=== PATIENT | female | born 1985 | race Caucasian/White ===

== ENCOUNTER 2016-05-15 09:15 | Inpatient (IN) | payer MEDICAID ==
[2016-05-15] MEDS ORDERED: LR 1,000 ML IV PRN ×2 (10:53→12:50)
[2016-05-15] MEDS ORDERED: AMPICILLIN SODIUM 2 GM in NS 100 ML IV ONE ×2 (11:00→12:50)
[2016-05-15] MEDS ORDERED: TERBUTALINE SULFATE 1 MG/ML VIAL IV PRN (12:50)
[2016-05-15] MEDS ORDERED: OXYTOCIN/RINGERS LACTATE 1,000 ML IV PRN (12:50)
[2016-05-15] MEDS ORDERED: EPSOM SALT 454 GM TP PRN (12:50)
[2016-05-15] MEDS ORDERED: OLIVE OIL 118 ML BTL MISC PRN (12:50)
[2016-05-15] MEDS ORDERED: LIDOCAINE 1% 30 ML SDV SC PRN (12:50)
[2016-05-15 13:05] LABS: % IMMATURE GRANULYOCYTES 0.6 % (0.0-1.1); ABSOLUTE IMMATURE GRANULOCYTES 0.09 10^3/uL (0.00-0.10); ADD DIFF? NO; ADD MORPH? NO; ADD SCAN? NO; ATYPICAL LYMPHOCYTE FLAG 10 (0-99); FRAGMENT RBC FLAG 0 (0-99); HEMATOCRIT 37.6 % (38.0-47.0); HEMOGLOBIN 13.3 g/dL (12.6-16.3); LEFT SHIFT FLG 0 (0-99); LIPEMIA HEMOLYSIS FLAG 90 (0-99); MEAN CELL HEMOGLOBIN 32.4 pg (27.9-34.1); MEAN CELL HEMOGLOBIN CONCENTR. 35.4 g/dL (32.4-36.7); MEAN CELL VOLUME 91.5 fL (81.5-99.8); MEAN PLATELET VOLUME 11.5 fL (8.7-11.7); PLATELET CLUMPS FLAG 0 (0-99); PLATELET COUNT 182 10^3/uL (150-400); RED BLOOD CELL COUNT 4.11 10^6/uL (4.18-5.33); RED CELL DISTRIBUTION WIDTH 13.7 % (11.5-15.2)
--- NOTE | 2016-05-15 13:06 | GHP ---
[f rep st] PREOP HISTORY AND PHYSICAL DATE OF ADMISSION: 05/15/2016 CHIEF COMPLAINT: The patient is a 31-year-old, G4, P2-0-1-2 female who is at 39 and 6/7 weeks gestation dated by LMP and a 9 week ultrasound who presented with complaints of painful contractions every 2-3 minutes. PAST MEDICAL HISTORY: Negative. PAST SURGICAL HISTORY: Negative. RECORD CHANGER HISTORY: Remote history of chlamydia. OB HISTORY: She has had 2 previous NSVDs, largest pound 7 and one-half pounds. PAST SURGICAL HISTORY: Significant for cholecystectomy. FAMILY HISTORY: Noncontributory. ALLERGIES: She has no known drug allergies. MEDICATIONS: She is currently taking vitamins, iron, Diflucan and Metrogel. REVIEW OF SYSTEMS: Positive for painful contractions. Denies any vaginal bleeding or loss of fluid. DISCHARGE EXAMINATION: On exam her vital signs are stable. In general, she is no apparent distress. Her abdomen is gravid, nontender. Estimated weight is 7-pounds. Cervical exam is 4, 90, 0 station. LABORATORY DATA: A positive. Antibody screen negative. Rubella immune. RPR nonreactive. Hepatitis B surface antigen negative. HIV negative. Gonorrhea and chlamydia negative. One hour Glucola is 153. Reportedly has had a normal 3 hour GTT but not in the chart. GBS was positive on 04/18/2016. ASSESSMENT/PLAN: This is a 31-year-old, G4, P2-0-1-2, female who is at 39 weeks and 6/7 weeks gestation who is here for active labor. well-being is reassuring. GBS was positive. Will begin antibiotics and expect . /[id number]/MODL MTDD
[2016-05-15] MEDS ORDERED: TERBUTALINE SULFATE 1 MG/ML VIAL ONE (14:10)
[2016-05-15] MEDS ORDERED: AMMONIA AROMATIC 1 EACH AMP IH ONE (14:10)
[2016-05-15] MEDS ORDERED: LIDOCAINE 1% 30 ML SDV ONE (14:10)
[2016-05-15] MEDS ORDERED: OLIVE OIL 118 ML BTL ONE (14:10)
[2016-05-15] MEDS ORDERED: MISOPROSTOL 200 MCG TAB ONE (14:11)
[2016-05-15] MEDS ORDERED: OXYTOCIN 10 UNIT/ML VIAL ONE (14:11)
[2016-05-15] MEDS: AMPICILLIN SODIUM 1 GM in NS 100 ML IV SCH ×2 (16:35→23:10)
[2016-05-15] MEDS ORDERED: AMPICILLIN SODIUM 1 GM in NS 100 ML IV SCH (16:52)
[2016-05-15] MEDS ORDERED: HYDROCORTISONE 0.5% CREAM TP PRN (17:27)
[2016-05-15] MEDS ORDERED: SIMETHICONE 80 MG TAB CHEW PO PRN (17:27)
--- NOTE | 2016-05-15 17:29 | OBPROC ---
- Labor and Delivery Onset of Contractions Date: 05/15/16 Onset of Contractions Time: 07:00 Onset of Contractions Type: Spontaneous Rupture of Membranes Date: 05/15/16 Rupture of Membranes Type: Spontaneous Amniotic Fluid Color: Meconium Stained-Light Dilation Complete Time: 17:00 Delivery Type: Spontaneous Placenta Delivery Date: 05/15/16 Episiotomy/Laceration: 2nd Degree Repair: 3-0, Vicryl EBL: 300 ml Complications: Nuchal Cord - Medications Labor Augmentation/Induction Meds Used: None Anesthesia: Local (Specify) (lidocaine) - [place] Info Infant A Delivery Date: 05/15/16 Delivery Time: 17:08 Sex of Infant: Female Score (1 Min): 8 Score (5 Min): 9 (Patient progressed rapidly, RN delivered, nuchal cord x 1, spontaneous delivered of the placenta, ebl 300 ml, 2nd lac repaired in usual fashion.)
[2016-05-15] MEDS: IBUPROFEN 600 MG TAB PO PRN ×2 (17:30→23:03)
[2016-05-15] MEDS: DOCUSATE SODIUM 100 MG CAP PO PRN (22:39)
[2016-05-15] MEDS: HYDROCODONE/APAP 5/325 TAB PO PRN (22:39)
[2016-05-15 23:10] VITALS: O2SAT 94
[2016-05-16] MEDS: HYDROCODONE/APAP 5/325 TAB PO PRN ×2 (04:47→08:52)
[2016-05-16] MEDS: IBUPROFEN 600 MG TAB PO PRN ×4 (04:47→23:08)
--- NOTE | 2016-05-16 08:37 | SOAPPROG ---
SOAP Progress Note Assessment/Plan: Assessment: 31 y.o. female s/p PPD #1. Recovering well with good pain control. . Plan: Routine care. consult PRN. Anticipate discharge to home tomorrow. 05/16/16 08:34 Subjective: Reports feeling well with good pain control. infant well. Has been out of bed and ambulating without vertigo. Eating and drinking well without nausea or vomiting. Appropriate mood with good support system. Objective: Vital Signs Temp Pulse Resp BP Pulse Ox 36.4 C 74 16 107/67 94 05/16/16 07:28 05/16/16 07:28 05/16/16 07:28 05/16/16 07:28 05/16/16 07:28 Laboratory Results 05/15/16 12:30 - Time Spent With Patient Time Spent With Patient: 20 minutes - Pending Discharge Pending Discharge Within 24 Hours: Yes Pending Discharge Date: 05/17/16 Pending Discharge Time: 11:00 Physical Exam - Physical Exam General Appearance: WD/WN, alert, no apparent distress EENT: normal ENT inspection Neck: non-tender, full range of motion, normal inspection Respiratory: lungs clear, normal breath sounds Cardiac/Chest: regular rate, rhythm Abdomen: non-tender, soft Pelvic Exam: normal external exam Rectal: deferred Back: Normal inspection Skin: normal color, warm/dry Lymphatic: no adenopathy Extremities: non-tender, normal inspection Neuro/Psych: alert, normal mood/affect, oriented x 3 ICD10 Worksheet Patient Problems: Problems Problem Status Onset Active labor Acute
[2016-05-16] MEDS: DOCUSATE SODIUM 100 MG CAP PO PRN ×2 (08:51→19:44)
[2016-05-16 21:12] VITALS: RESP 18
[2016-05-17] MEDS: IBUPROFEN 600 MG TAB PO PRN (04:57)
[2016-05-17 08:35] VITALS: BP 125/69; PULSE 75; TEMP 98
--- NOTE | 2016-05-17 10:37 | OBGCSDC ---
General Delivery Information - General Info : 4 Para: 3 Delivery Date: 05/15/16 Delivery Physician/CNM: Magnolia Berry Admission Date: 05/15/16 Labs: Patient ABO/Rh A POSITIVE 05/15/16 12:30 Hct 37.6 % (38.0-47.0) L 05/15/16 12:30 - [place] Info Infant A Sex of : Female Score (1 Min): 8 Score (5 Min): 9 (Patient progressed rapidly, RN delivered, nuchal cord x 1, spontaneous delivered of the placenta, ebl 300 ml, 2nd lac repaired in usual fashion.) Vaginal - Diagnosis Labor: Spontaneous Rupture of Membranes Type: Spontaneous Amniotic Fluid Color: Clear Repair: 3-0, Vicryl Complications: Nuchal Cord - Operations/Procedures Delivery Type: Spontaneous - Hospital Course Antepartum: Uncomplicated 3rd . Rh pos. Rub immune. Spontaneous labor Intrapartum: Uncomplicated : Routine care. Home PPD#2. - Delivery EBL: 300 ml Anesthesia: Local (Specify) (lidocaine) Discharge Information - Discharge Information Condition: Good Instruction/Follow Up: Six Weeks Discharge Physician/CNM: Valeria Osborn Discharge Date: 05/17/16 Dictated: No
== END 2016-05-17 12:30 | disposition home or self-care (01) | DRG 775 ==
LOC: FLD 09:15 → OBSVTOIN 12:50 → FOB 20:02
PROVIDERS: ADMIT Obstetrics & Gynecology; ATTEND Obstetrics & Gynecology
PROC: 10E0XZZ Delivery of Products of Conception, External Approach (ICD-10-PCS; principal; 2016-05-15)
PROC: 0KQM0ZZ Repair Perineum Muscle, Open Approach (ICD-10-PCS; principal; 2016-05-15)
DX: O70.1 Second degree perineal laceration during delivery (principal); O99.820 Streptococcus B carrier state complicating pregnancy; O69.81X0 Labor and delivery complicated by cord around neck, without compression, not applicable or unspecified; O77.0 Labor and delivery complicated by meconium in amniotic fluid; Z3A.39 39 weeks gestation of pregnancy; Z37.0 Single live birth
CPT/HCPCS: J0290; J2590; J3105